=== PATIENT | male | born 1995 | race Caucasian/White ===

== ENCOUNTER → 2025-03-09 11:10 | Outpatient (AMB) | payer OTHER, SELFPAY ==
--- NOTE | 2025-03-09 11:12 | A.OFFVIS_ITS ---
Intake Visit Reasons: 1 yr follow up Allergies No Known Allergies Allergy (Unverified 02/25/20 16:25) HPI Comments Details: 29 years old man with history of generalized seizure disorder started when he was 14 years old and seizures have mostly happened during sleep. Initially seen in 2015. He was born as a normal child from normal but had some kind of problem that resulted in staying in a hospital for six months. Later his milestones were normal and he went to regular school. 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 He was about 14 years old when he started having seizures. There was no obvious trigger and he was not using any drugs such as cocaine. He said that seizures mostly happened during sleep or at night. Seizures were reported as grand mal type. He is presenting for the management of his previously diagnosed seizure disorder. He reports a significant history of seizures, with the last episode occurring between 2018 and possibly 2019, and no subsequent occurrences noted. The patient adheres to a regimen of unspecified medication, administrating two doses daily. He denies any recent changes in seizure activity or adverse medication effects. He has a history of completing a blood test toward the latter part of 2022 or the beginning of 2023. An MRI was conducted in 2015, related to past episodes, but no recent imaging studies have been performed. The patient's care included an annual primary care physician consultation last year. [facility] Medical History (Updated 03/09/25 @ 11:18 by Paola Steele MD) Cannabis abuse Epilepsy Review of Systems Const Details: - Neurologic: Reports absence of seizures since approximately 1215-8524. - Medication: Reports current medication intake as one pill in the morning and one in the evening. - General: Denies any major current problems; reports stable mood and adequate sleep. Assessment & Plan Assessment & Plan (1) Epilepsy: Code(s): G40.909 - Epilepsy, unspecified, not intractable, without status epilepticus Category: Medical Qualifiers: Epilepsy type: generalized idiopathic Intractability: not intractable Status epilepticus: without status epilepticus Qualified Code(s): G40.309 - Generalized idiopathic epilepsy and epileptic syndromes, not intractable, without status epilepticus Plan Impressoin: Stable epilepsy with generalized mostly sleep time seizures with unknown cause Rec: Levetiracteam 750mg bid During this visit, we discussed the patient's well-established seizure disorder, focusing on the stability and absence of seizures since 2019 or 2020. I highlighted the importance of continuing his current medication regimen, which is taken twice daily, and recommended a blood test to monitor liver function due to ongoing medication use. I emphasized the need for annual visits to his primary care physician for routine monitoring and evaluation. We explored options regarding his primary care provider and discussed recent and past diagnostic studies, including an MRI conducted in 2016. We agreed on the critical importance of continued medication adherence and regular health evaluations. Orders: Orders Liver Panel Today G40.309 - Generalized idiopathic epilepsy and epileptic syndromes, not intractable, without status epilepticus Medications: Refilled levetiracetam 750 mg PO BID 180 tabs 3RF 90 days Coding Level of Care Code Est Pt Level 4 (63837) Diagnoses Nonintractable generalized idiopathic epilepsy without status epilepticus G40.309 Epilepsy type: generalized idiopathic Intractability: not intractable Status epilepticus: without status epilepticus
--- OUTSIDE RECORDS SUMMARY | 2025-03-09 12:36 | XMS_ITS | Clinical Summary ---
Author Organization [facility] Address [address] [place] [address] Care Team Providers Care Punch Molder Name Role Phone Unavailable Primary Care Provider Unavailabl e Medications No known medications Social History Tobacco Use Types Packs/Day Years Used Date Smoking Tobacco: Never Assessed Sex and Gender Information Value Date Recorded Sex Assigned at Male 12/31/2021 9:28 PM EDT Gender Identity Not on file Sexual Orientation Not on file Job Start Date Occupation Industry Not on file Not on file Not on file Last Filed Vital Signs Vital Sign Reading Time Taken Comments Blood Pressure 156/93 12/31/2021 9:31 PM EDT Pulse 97 12/31/2021 9:31 PM EDT Temperature 37.3 C (99.1 F) 12/31/2021 9:31 PM EDT Respiratory Rate 18 12/31/2021 9:31 PM EDT Oxygen Saturation 97% 12/31/2021 9:31 PM EDT Inhaled Oxygen Concentration - - Weight - - Height - - Body Mass Index - - Plan of Treatment Not on file
--- OUTSIDE RECORDS SUMMARY | 2025-03-09 12:36 | XMS_ITS ---
Author Name [facility] Organization Unknown Care Team Organization Name Specialty Phone Email Start Date End Da te [facility] Victor Manuel Granados Primary Care 10/15/202201/08 [facility] Shar Coley Primary Care 09/11/20222023 [facility] Yohana Goldberg Primary Care 04/17/2022 01/27/20 24
--- OUTSIDE RECORDS SUMMARY | 2025-03-09 12:36 | XMS_ITS | Clinical Summary ---
Author Organization [address] Address [address] [place] [phone] Phone Care Team Providers Care Sba Underwriter Name Role Phone Victor Manuel Granados MD Primary Care Provider [phone] Allergies No known active allergies Medications budesonide (PULMICORT) 180 mcg/actuation inhaler Inhale 1 Puff into the lungs daily. 04/03/2023 Active fluticasone HFA (Flovent HFA) 110 mcg/actuation inhaler TAKE 1 PUFF BY MOUTH TWICE A DAY 03/29/2023 Active cyclobenzaprine (FLEXERIL) 5 mg tablet Take 1 Tablet by mouth 3 times daily as needed for Muscle spasms. 10/23/2022 Active albuterol HFA (PROAIR HFA ; PROVENTIL HFA ; VENTOLIN HFA) 90 mcg/actuation inhaler Inhale 2 Puffs into the lungs every 4 hours as needed for Cough or Wheezing. 10/23/2022 Active Active Problems Problem Noted Date Diagnosed Date Mild intermittent asthma 01/25/2023 Epilepsy ([facility] V24, [facility] V28) 10/14/2014 Overview (03/16/2024): Nocturnal seizures Immunizations Immunization Administration Dates Next Due Pfizer SARS-CoV-2 COVID-19, mRNA, LNP-S, preservative free 05/18/2022 Tdap Tetanus diptheria acell ular pertussis (Boostrix; Adacel) 7yo and older 10/23/2022 Surgical History Surgery Date Site/Laterality Comments OTHER SURGICAL HISTORY PROCEDURE: DENIES PREVIOUS SURGERY Medical History Medical History Date Comments Epilepsy ([facility] V24, [facility] V28) 10/14/2014 DX:Epilepsy (HCC) Family History Medical History Relation Name Comments Migraines Father Diabetes Paternal Grandmother Lung cancer Paternal Grandmother Other: seizure disorder Uncle 1 Coronary artery disease Neg Hx Relation Name Status Comments Father Paternal Grandmother Uncle 1 Uncle 2 Social History Tobacco Use Types Packs/Day Years Used Date Smoking Tobacco: Former Cigarettes Smokeless Tobacco: Never Alcohol Use Standard Drinks/Week Comments Not Currently 0 (1 standard drink = 0.6 oz pur e alcohol) Sex and Gender Information Value Date Recorded Sex Assigned at Not on file Legal Sex Male 5:21 AM EST Gender Identity Not on file Sexual Orientation Not on file Obstetrics History Last Filed Vital Signs Vital Sign Reading Time Taken Comments Blood Pressure 116/76 01/25/2023 3:49 PM EDT Pulse 84 01/25/2023 3:49 PM EDT Temperature - - Respiratory Rate - - Oxygen Saturation - - Inhaled Oxygen Concentration - - Weight 101 kg (223 lb) 01/25/2023 3:49 PM EDT Height 180.3 cm (5' 11 ) 01/25/2023 3:49 PM EDT Body Mass Index 31.1 01/25/2023 3:49 PM EDT Plan of Treatment Health Maintenance Due Date Last Done Comments Hepatitis B Vaccines (1 of 3 - 19+ 3-dose series) 2012 Pneumococcal Vaccine: Pediat rics (0 to 5 Years) and At-Risk Patients (6 to 49 Years) (1 of 2 - PCV) 2012 Social Influencers of Health Screening 05/13/2022 Depression Screening 06/10/2024 COVID-19 Vaccine (2 - 2024-2 6 season) 2025 05/18/2022 Influenza Vaccine (#1) 2025 Cholesterol Screening (Lipid Panel) 10/24/2027 10/23/2022 DTaP,Tdap,and Td Vaccines (2 - Td or Tdap) 10/23/2032 10/23/2022 HIV Screening Completed 10/23/2022 Hepatitis C Screening Completed 10/23/2022 HIB Vaccines Aged Out No longer eligi ble based on patient's age to complete this topic HPV Vaccines Aged Out No longer eligi ble based on patient's age to complete this topic Hepatitis A Vaccines Aged Out No long er eligible based on patient's age to complete this topic IPV Vaccines Aged Out No longer eligi ble based on patient's age to complete this topic MMR Vaccines Aged Out No longer eligi ble based on patient's age to complete this topic Meningococcal ACWY Vaccine Aged Out N o longer eligible based on patient's age to complete this topic Meningococcal B Vaccine Aged Out No l onger eligible based on patient's age to complete this topic RSV Immunization Patients Un aleja 20 months Aged Out No longer eligible b ased on patient's age to complete this topic Varicella Vaccines Aged Out No longer eligible based on patient's age to complete this topic Procedures Procedure Name Priority Date/Time Associated Diagnosis Comments HEPATITIS C SCREENING Routine 10/23/2022 HIV SCREENING Routine 10/23/2022 LIPID PANEL Routine 10/23/2022 from Last 3 Months or Most Recently Relevant to Health Maintenance Results * HIV Screening (10/23/2022) HIV Screening Abstracted Historical Provider HEALTH MAINTENANCE Final Result * Hepatitis C Screening (10/23/2022) Pathologist [facility] Hepatitis C Screening Abstracted [facility] Provider HEALTH MAINTENANCE Final Result * Lipid panel (10/23/2022) Pathologist [facility] LDL/HDL Ratio 2 0 - 4 Triglycerides 89 0 - 150 mg/dL Cholesterol 157 0 - 200 mg/dL HDL 69 >=40 mg/dL LDL Cholesterol 71 0 - 100 mg/dL Blood Venous blood specimen / Unknown Historical Provider LAB BLOOD ORDERABLES Starla l Result from Last 3 Months or Most Recently Relevant to Health Maintenance Insurance [facility] Care Teams Sba Underwriter Relationship Specialty Start Date End Date Victor Manuel Granados MD [address] [place] [phone] PCP - General 06/08/22
== END ==
LOC: HO.HSM 11:10
PROVIDERS: Visit Provider Psychiatry & Neurology Neurology
DX: G40.309 Generalized idiopathic epilepsy and epileptic syndromes, not intractable, without status epilepticus (principal)
CPT/HCPCS: 99214

== ENCOUNTER 2025-04-26 00:09 | Emergency (ER) | payer OTHER, SELFPAY ==
--- NOTE | 2025-04-26 | ECG_ITS ---
Test Reason : chest pain Blood Pressure : */* mmHG Vent. Rate : 96 BPM Atrial Rate : 96 BPM P-R Int : 140 ms QRS Dur : 82 ms QT Int : 358 ms P-R-T Axes : 75 24 55 degrees QTcB Int : 452 ms Normal sinus rhythm Normal ECG No previous ECGs available Referred By: Generic ED Physician Electronically Signed By: YOUSIF GOMEZ
--- NOTE | ~2025-04-26 | CT_ITS ---
CLINICAL HISTORY: CP; SOB; Cough; Abnormal CXR CTA CHEST WITH CONTRAST AND 3D POST PROCESSING COMPARISON: Chest x-ray 04/26/2025. FINDINGS: Sagittal and coronal MIP 3D reconstruction images were performed. No evidence of a pulmonary embolism. Cardiac size is within normal limits. Thoracic aorta is partially obscured by motion/streak artifact but is normal in caliber without evidence of an aneurysm. No definite dissection. No evidence of a pneumothorax or pneumomediastinum. No acute infiltrate or consolidation. No pleural or pericardial effusion. No lymphadenopathy. Scans of the upper abdomen are limited due to motion/streak artifact. No gross abnormality. Bone windows demonstrate no acute abnormalities. Dextrocurvature of the thoracic spine is noted. IMPRESSION: 1. No evidence of a pulmonary embolism. No acute disease in the chest. This document has been electronically signed by: Foreign Boyer M.D. on 04/26/2025 04:16:14
--- NOTE | ~2025-04-26 | XR_ITS ---
CLINICAL HISTORY: cp CHEST X-RAY FRONTAL AND LATERAL VIEWS COMPARISON: None provided. FINDINGS: Frontal and lateral views of the chest were performed. Lateral view is rotated which limits assessment. Cardiac size is within normal limits. There is minimal elevation of the right hemidiaphragm. No focal infiltrate or consolidation. No definite infiltrate in the right middle lobe on the lateral view. There is minimal blunting of the left costophrenic angle on the lateral view, suggesting pleural thickening or a tiny pleural effusion. No pneumothorax. Mild dextrocurvature of the thoracic spine is noted. IMPRESSION: 1. Minimal blunting of the left costophrenic angle on the lateral view, suggesting pleural thickening or a tiny pleural effusion. 2. No focal infiltrate or consolidation. This document has been electronically signed by: Foreign Boyer M.D. on 04/26/2025 02:09:41
[2025-04-26 00:29] VITALS: BP 143/82; PULSE 89; RESP 20; TEMP 36.8; O2SAT 99; BMI 29.7
[2025-04-26 00:46] LABS: MANUAL DIFF FLAG NO
--- OUTSIDE RECORDS SUMMARY | 2025-04-26 00:48 | XMS_ITS | Clinical Summary ---
Author Organization [facility] Address [address] [place] [address] Care Team Providers Care Labourers Name Role Phone Unavailable Primary Care Provider [...]
--- OUTSIDE RECORDS SUMMARY | 2025-04-26 00:48 | XMS_ITS | Clinical Summary ---
Author Organization [address] Address [address] [place] [phone] Phone Care Team Providers Care Crop Farm Helper Name Role Phone Victor Manuel Granados MD Primary Care Provider [phone] Allergies No known active allergies Medications budesonide [...] Diagnosed Date Mild intermittent asthma 01/25/2023 Epilepsy ([facility] V24, [facility] V28) 10/14/2014 Overview (03/16/2024): Nocturnal seizures Immunizations Immunization Administration Dates Next Due Pfizer SARS-CoV-2 COVID-19, mRNA, LNP-S, preservative free 05/18/2022 Tdap Tetanus diptheria acell ular pertussis (Boostrix; Adacel) 7yo and older 10/23/2022 Surgical History Surgery Date Site/Laterality Comments OTHER SURGICAL HISTORY PROCEDURE: DENIES PREVIOUS SURGERY Medical History Medical History Date Comments Epilepsy ([facility] V24, [facility] V28) 10/14/2014 DX:Epilepsy (HCC) Family History Medical [...] Years) (1 of 2 - PCV) 2012 HPV Vaccines (1 - 3-dose SCD M series) 2020 Social Influencers of Health Screening 05/13/2022 Depression Screening 06/10/2024 COVID-19 Vaccine (2 - 2024-2 6 season) 2025 05/18/2022 Influenza Vaccine (#1) 2025 Cholesterol Screening (Lipid Panel) 10/24/2027 10/23/2022 DTaP,Tdap,and Td Vaccines (2 - Td or Tdap) 10/23/2032 10/23/2022 RSV Immunization Adult Patie nts (1 - 1-dose 75+ series) 2068 HIV Screening Completed 10/23/2022 Hepatitis C Screening [...] Health Maintenance Results * HIV Screening (10/23/2022) Pathologist [facility] HIV Screening Abstracted [facility] Provider HEALTH MAINTENANCE Final Result * Hepatitis C Screening (10/23/2022) Pathologist [facility] Hepatitis C Screening Abstracted [facility] Provider HEALTH MAINTENANCE Final Result * Lipid panel (10/23/2022) Pathologist [facility] LDL/HDL Ratio 2 0 - 4 Triglycerides 89 0 - 150 mg/dL Cholesterol 157 0 - 200 mg/dL HDL 69 >=40 mg/dL LDL Cholesterol 71 0 - 100 mg/dL Blood Venous blood specimen / Unknown Historical Provider LAB BLOOD ORDERABLES Starla l Result from Last 3 Months or Most Recently Relevant to Health Maintenance Insurance [facility] [place] [phone] Care Teams Crop Farm Helper Relationship Specialty Start Date End Date Victor Manuel Granados MD [address] [place] [phone] PCP - General 06/08/22
[2025-04-26 00:56] LABS: Hematocrit 42.4 % (42.0-52.0); Hemoglobin 14.7 g/dl (14.0-18.0); Imm Gran Abs Auto 0.02 X10*3/uL (0.00-0.03); Imm Gran Pct Auto 0.3 % (0.0-0.4); Lymphocytes Absolute Auto 2.2 X10*3/uL (1.2-4.9); Mean Corpuscular HGB Conc 34.7 g/dl (31.0-36.0); Mean Corpuscular Hemoglobin 31.1 pg (27.0-33.0); Mean Corpuscular Volume 89.6 fL (80.0-98.0); NRBC Abs Auto 0.000 X10*3/uL (0.0-0.012); NRBC Pct Auto 0.0 /100WBC (0.0-0.2); Platelet Count 239 X10*3/uL (160-400); Red Blood Count 4.73 X10*6/uL (4.60-5.80); White Blood Count 6.8 X10*3/uL (4.8-10.8)
[2025-04-26 01:11] VITALS: PULSE 81
[2025-04-26 01:16] LABS: Alanine Aminotransferase 24 U/L (0-40); Albumin Level 5.2 g/dL (3.5-5.0); Alkaline Phosphatase 70 U/L (39-117); Anion Gap 17 (12-20); Aspartate Amino Transferase 30 U/L (5-37); Blood Urea Nitrogen 10 mg/dL (9-16); Calcium 9.5 mg/dL (8.4-10.2); Carbon Dioxide 23 mmol/L (22-29); Chloride 103 mmol/L (96-108); Creatinine Clr Calc Pharmacy 146.1; Estimated Glomerular Filt Rate > 60; Magnesium 2.0 mg/dL (1.6-2.6); Potassium 3.7 mmol/L (3.3-5.1); Sodium 139 mmol/L (135-145); Total Protein 7.7 g/dL (6.5-8.0)
--- NOTE | 2025-04-26 01:21 | ED.CHESTPAIN ---
HPI - Chest Pain General Chief Complaint: Chest Pain Stated Complaint: Chest Pain/sob Time Seen by Provider: 04/26/25 01:19 Source: patient Mode of arrival: ambulatory Limitations: no limitations History of Present Illness ED Provider: Jamshid DOMINGO HPI narrative: The patient is a 30-year-old male with a history of epilepsy for which he takes levetiracetam, as well as half pack per day tobacco use and occasional alcohol use, presenting to the ED for evaluation of intermittent chest pain which radiates to the back which has been ongoing for the past few months. The patient reports associated nonproductive cough. Patient reports pain occurs with movement, deep respiration, and palpation, and the pain moves from [id number], today is on the left side. The patient reports he is unable to identify any causative factors for the symptoms, specifically denies exertional exacerbation. The patient denies associated nausea, vomiting, diaphoresis, hemoptysis, abdominal pain, recent sick contacts, or recent trauma. Patient reports a few years ago he was diagnosed with COVID, reports he has been experiencing these symptoms since his COVID diagnosis. The patient reports in January he believes he had COVID once again, reports he was never tested for COVID, but believes he had it based on his symptoms. The patient reports he received his COVID vaccine 3 weeks ago, reports he believes the pain radiating to his back improved since receiving the COVID vaccine. Related Data Previous Rx's ?Medication ?Instructions ?Recorded levetiracetam 750 mg tablet 750 mg PO BID 90 days #180 tabs 03/09/25 Allergies Allergy/AdvReac Type Severity Reaction Status Date / Time No Known Allergies Allergy Unverified 04/26/25 00:33 Review of Systems Review of Systems: Yes all other systems are reviewed and are negative [facility], [facility] Past Medical History Medical History (Updated 04/26/25 @ 04:25 by Jamshid Grier PA-C) Cannabis abuse Epilepsy Social History Social History Smoked in Last 30 Days: Yes Use of substances other than those prescribed or required for medical reasons: Yes Substance Use Type: Marijuana Advance Directives: No Advance Directives Information Provided: No Physical Exam Vital Signs: Vital Signs: Last Vital Signs Temp 97.9 F 04/26/25 02:35 Pulse 70 04/26/25 02:35 Resp 16 04/26/25 02:35 BP 145/89 H 04/26/25 02:35 Pulse Ox 99 04/26/25 02:35 O2 Del Method Room Air 04/26/25 02:35 BMI result Body Mass Index 29.7 CONSTITUTIONAL: The patient appears non-toxic, well nourished and in no acute distress. Vital signs as documented. HEAD: Atraumatic, normocephalic. EYES: EOMs grossly intact, pupils equal, conjunctiva clear, no exudate. ENT: Nares patent, no discharge. Airway patent, no audible stridor, visible mucosa is pink and moist without noted lesions. NECK: Trachea is midline, no obvious masses or gross abnormalities. CHEST: Symmetric movement, normal appearance. LUNGS: LS present and CTAB, no w/r/r. Non-labored work of breathing. CARDIAC: Regular Rhythm, S1/S2 appreciated, no murmurs, rubs or gallops. ABDOMEN: Abdomen soft and non-tender x4 quadrants, no palpable masses or organomegaly. : Deferred. EXTREMITIES: Normal tone, moves all extremities spontaneously without reported pain. No obvious acute injury or deformity noted. NEURO: Alert and oriented x3, CN II-XII appear grossly intact. Cerebellar Functioning grossly intact. No obvious sensory or motor deficits. Speech clear and appropriate. PSYCH: normal affect, appropriate eye contact, fluid speech, with appropriate response to questioning. No reported suicidality or homicidality. SKIN: Warm, dry, color appropriate, normal turgor. No rashes noted. Medications Administered Discontinued Medications Generic Name Dose Route Start Last Admin Trade Name Jeromeq PRN Reason Stop Dose Admin Ibuprofen 600 mg 04/26/25 01:44 04/26/25 02:27 Ibuprofen 600 Mg Tablet PO 04/26/25 01:45 600 mg ONCE ONE Administration Iohexol 100 ml 04/26/25 02:49 04/26/25 02:50 Iohexol 350 Mg/Ml 100 Ml Infus..Btl IV 04/26/25 02:50 65 ml ONCE ONE Administration Lidocaine 1 patch 04/26/25 01:44 04/26/25 02:27 Lidocaine 4 % Patch Adh..Patch TRANSDERMA 04/26/25 01:45 1 patch ONCE ONE Administration Protocol Medical Decision Making Medical Decision Making MDM Narrative: 1:33 AM 04/26/2025 (Ludy DOMINGO): The patient is a 30-year-old male with a history of epilepsy for which he takes levetiracetam, as well as half pack per day tobacco use and occasional alcohol use, presenting to the ED for evaluation of intermittent chest pain which radiates to the back which has been ongoing for the past few months. The patient reports associated nonproductive cough. Patient reports pain occurs with movement, deep respiration, and palpation, and the pain moves from [id number], today is on the left side. The patient reports he is unable to identify any causative factors for the symptoms, specifically denies exertional exacerbation. The patient denies associated nausea, vomiting, diaphoresis, hemoptysis, abdominal pain, recent sick contacts, or recent trauma. Patient reports a few years ago he was diagnosed with COVID, reports he has been experiencing these symptoms since his COVID diagnosis. The patient reports in January he believes he had COVID once again, reports he was never tested for COVID, but believes he had it based on his symptoms. The patient reports he received his COVID vaccine 3 weeks ago, reports he believes the pain radiating to his back improved since receiving the COVID vaccine. In the ED the patient is well-appearing, in no acute distress, patient is afebrile without tachycardia, tachypnea, or hypoxia. On exam patient's lung sounds are clear, pain is reproducible with palpation of the left sternal border, no crepitus. The patient's EKG is nonischemic, troponin is negative. The patient's laboratory evaluation demonstrates no leukocytosis, anemia, electrolyte abnormality, or KG. The patient's symptoms are likely musculoskeletal in nature. The patient will be treated with ibuprofen and a lidocaine patch, and pending unremarkable chest x-ray interpretation, will be discharged to follow up with PCP. Patient has been educated on importance of smoking cessation. 2:21 AM 04/26/2025 (Ludy DOMINGO): The patient's chest x-ray shows no focal consolidation, however there is blunting of the left costophrenic angle concern for possible pleural thickening or tire pleural effusion, seeing as the patient's pain is on the left side, and x-ray is not entirely clear, we will obtain CTA of the chest to further clarify abnormal X-ray findings and rule out coagulopathic process although this is less likely. 4:23 AM 04/26/2025 (Ludy DOMINGO): Patient's CT shows no acute cardiopulmonary process, no PE. Patient will be discharged with supportive care and instructions to follow up with PCP. Admission/Observation Consideration of admission/observation: Escalation of care including admission/observation considered Lab Data MDM Lab Attestation statement: I reviewed the patient's lab results. 04/26/25 00:35 04/26/25 00:35 Labs: Lab Results 04/26/25 Range/Units 00:35 WBC 6.8 (4.8-10.8) X10*3/uL RBC 4.73 (4.60-5.80) X10*6/uL Hgb 14.7 (14.0-18.0) g/dl Hct 42.4 (42.0-52.0) % MCV 89.6 (80.0-98.0) fL MCH 31.1 (27.0-33.0) pg MCHC 34.7 (31.0-36.0) g/dl RDW 11.5 (11.0-16.0) % Plt Count 239 (160-400) X10*3/uL MPV 9.5 (9.4-12.4) fL Immature Gran % (Auto) 0.3 (0.0-0.4) % Neut % (Auto) 59.0 (45-73) % Lymph % (Auto) 32.2 (20-40) % Chase % (Auto) 7.8 (2-11) % Eos % (Auto) 0.4 (0-4) % Baso % (Auto) 0.3 (0-2) % Lymph # (Auto) 2.2 (1.2-4.9) X10*3/uL Chase # (Auto) 0.5 (0.1-1.2) X10*3/uL Eos # (Auto) 0.0 (0.0-0.4) X10*3/uL Baso # (Auto) 0.0 (0.0-0.2) X10*3/uL Abs Immat Gran (auto) 0.02 (0.00-0.03) X10*3/uL Absolute Neuts (auto) 4.0 (2.0-8.3) x10*3/uL Absolute Nucleated RBC 0.000 (0.0-0.012) X10*3/uL Nucleated RBC % (auto) 0.0 (0.0-0.2) /100WBC Sodium 139 (135-145) mmol/L Potassium 3.7 (3.3-5.1) mmol/L Chloride 103 (96-108) mmol/L Carbon Dioxide 23 (22-29) mmol/L Anion Gap 17 (12-20) BUN 10 (9-16) mg/dL Creatinine 0.86 (0.5-1.4) mg/dL Estim Creat Clear Calc 146.1 Estimated GFR > 60 Random Glucose 103 (60-115) mg/dL Calcium 9.5 (8.4-10.2) mg/dL Magnesium 2.0 (1.6-2.6) mg/dL Total Bilirubin 1.5 H (0.0-1.0) mg/dL AST 30 (5-37) U/L ALT 24 (0-40) U/L Alkaline Phosphatase 70 (39-117) U/L Troponin I High Sens < 2.7 (<3.5-35.0) ng/L Total Protein 7.7 (6.5-8.0) g/dL Albumin 5.2 H (3.5-5.0) g/dL Independent Interpretation I performed an independent interpretation of an: EKG (EKG shows sinus rhythm with a rate of 96, no evidence of acute ischemia, no ST elevation, no ectopy. QTC 452. No old for comparison.) Radiology Impression Discussion of test interpretation with radiology: I have reviewed the radiologist's reading. Radiologist Impression: CHEST X-RAY FRONTAL AND LATERAL VIEWS COMPARISON: None provided. FINDINGS: Frontal and lateral views of the chest were performed. Lateral view is rotated which limits assessment. Cardiac size is within normal limits. There is minimal elevation of the right hemidiaphragm. No focal infiltrate or consolidation. No definite infiltrate in the right middle lobe on the lateral view. There is minimal blunting of the left costophrenic angle on the lateral view, suggesting pleural thickening or a tiny pleural effusion. No pneumothorax. Mild dextrocurvature of the thoracic spine is noted. IMPRESSION: 1. Minimal blunting of the left costophrenic angle on the lateral view, suggesting pleural thickening or a tiny pleural effusion. 2. No focal infiltrate or consolidation. This document has been electronically signed by: Foreign Boyer M.D. on 04/26/2025 02:09:41 CTA CHEST WITH CONTRAST AND 3D POST PROCESSING COMPARISON: Chest x-ray 04/26/2025. FINDINGS: Sagittal and coronal MIP 3D reconstruction images were performed. No evidence of a pulmonary embolism. Cardiac size is within normal limits. Thoracic aorta is partially obscured by motion/streak artifact but is normal in caliber without evidence of an aneurysm. No definite dissection. No evidence of a pneumothorax or pneumomediastinum. No acute infiltrate or consolidation. No pleural or pericardial effusion. No lymphadenopathy. Scans of the upper abdomen are limited due to motion/streak artifact. No gross abnormality. Bone windows demonstrate no acute abnormalities. Dextrocurvature of the thoracic spine is noted. IMPRESSION: 1. No evidence of a pulmonary embolism. No acute disease in the chest. This document has been electronically signed by: Foreign Boyer M.D. on 04/26/2025 04:16:14 Discharge Plan Discharge Clinical Impression: Atypical chest pain Patient Disposition: Home, Self-Care Instructions: Noncardiac Chest Pain (ED), Chest Wall Pain (ED) Additional Instructions: Thank you for choosing [facility]'s Emergency Department for your care today. Thankfully your laboratory evaluation, EKG, CT and exam today are all reassuring. There was no evidence of any acute cardiac, pulmonary, coagulopathic (blood clot), infectious, metabolic, or other dangerous cause for your symptoms. At this time there is no indication for admission to the hospital or continued ED observation, and it is safe to discharge you home. Your symptoms may be related to inflammation of your chest wall or the cartilage between your ribs and sternum, a condition known as costochondritis. You should take alternating (staggered) doses of ibuprofen 600mg and Tylenol 1000mg every 4 hours as needed for any additional pain. We have also treated you with a lidocaine patch, if you find this provides you significant relief additional patches can be purchased at any local pharmacy without a prescription. Please follow up with your primary care physician for re-evaluation, additional management of your symptoms, and continued preventative care. If you do not have a primary care physician, please call the [facility] at [phone] to establish a new primary care physician. While waiting to establish your new primary care physician, you can call our [facility] at [phone] for non-emergency needs. Please return to the emergency department if you develop a severe or sudden change in your symptoms, a fever over 100.4 that does not improve with Tylenol or Ibuprofen, recurrent vomiting, or any other new or worsening symptoms or concerns. Prescriptions: No Action levetiracetam 750 mg tablet 750 mg PO BID 90 Days Qty: 180 3RF Referrals: Victor Manuel Granados MD [Primary Care Provider, Internal Medicine] Clinical Impression: Atypical chest pain Print Language: Slovenian
[2025-04-26 01:24] LABS: Troponin-I High Sensitivity < 2.7 ng/L (<3.5-35.0)
[2025-04-26] MEDS: Lidocaine 4 % Patch ADH..PATCH 1 PATCH TRANSDERMA (02:27)
[2025-04-26 02:35] VITALS: BP 145/89; PULSE 70; RESP 16; TEMP 36.6; O2SAT 99
--- NOTE | 2025-04-26 02:44 | PC.NURSE ---
Patient awake and alert. skin pwd, resp even and non labored, speaking in full, clear sentences. continue to c/o 12/17 right sided chest pain w/ inspiration. patient medicated per AUG. patient aware of plan of care for CTA
[2025-04-26] MEDS: iohexoL 350 MG/ML 100 ML INFUS..BTL IV (02:50)
[2025-04-26 04:46] VITALS: BP 145/89; PULSE 70; RESP 16; TEMP 36.6; O2SAT 99
== END 2025-04-26 04:48 | disposition home or self-care (01) ==
PROVIDERS: Emergency Provider Emergency Medicine; PCP Internal Medicine
DX: R07.89 Other chest pain (principal); R06.02 Shortness of breath; R05.9 Cough, unspecified; G40.909 Epilepsy, unspecified, not intractable, without status epilepticus; Z79.899 Other long term (current) drug therapy; R93.89 Abnormal findings on diagnostic imaging of other specified body structures
CPT/HCPCS: 36415; 71046; 71275; 80053; 83735; 84484; 85025; 93005; 99285; Q9967

== ENCOUNTER → 2025-04-26 00:14 | Outpatient (BNV) | payer OTHER, SELFPAY | PROVIDERS: Emergency Provider Emergency Medicine; PCP Internal Medicine; Visit Provider Internal Medicine | DX: R07.9 Chest pain, unspecified (principal) | CPT/HCPCS: 93010 ==

== ENCOUNTER → 2025-04-26 00:35 | Outpatient (BNV) | payer OTHER, SELFPAY | PROVIDERS: Emergency Provider Emergency Medicine; PCP Internal Medicine; Visit Provider Radiology Diagnostic Radiology | DX: R07.9 Chest pain, unspecified (principal); R06.02 Shortness of breath; R05.9 Cough, unspecified | CPT/HCPCS: 71046; 71275 ==